=== PATIENT | female | born 1980 | race Caucasian/White ===

== ENCOUNTER 2018-01-24 19:00 | Inpatient (IN) | payer OTHER ==
[~2018-01-24] VITALS: Ht 172.7 cm; Wt 49.4 kg
[2018-01-24] MEDS ORDERED: CLINDAMYCIN 600 mg/50mL D5W 50 ML IV ONE (19:30)
[2018-01-24] MEDS ORDERED: MORPHINE SULFATE 10MG/10ML PF AMP EP ONE (19:35)
[2018-01-24] MEDS ORDERED: ONDANSETRON HCL 4 MG/2 ML VIAL IVP ONE (19:35)
[2018-01-24] MEDS ORDERED: NS IRRIG SOLN 1000 ML IR ONE (19:35)
[2018-01-24] MEDS ORDERED: LR 1,000 ML IV.SOLN IV ONE (19:35)
[2018-01-24] MEDS ORDERED: OXYTOCIN 10 UNIT/ML VIAL IV ONE (19:35)
[2018-01-24] MEDS ORDERED: BUPIVACAINE /PF 0.75% 10 ML VIAL INJ ONE (19:35)
[2018-01-24] MEDS ORDERED: ePHEDrine sulfate 50 MG/ML VIAL IVP ONE (19:35)
[2018-01-24] MEDS ORDERED: CLINDAMYCIN PHOSPHATE 900 mg/50mL D5W IV ONE (19:35)
[2018-01-24] MEDS ORDERED: CEFAZOLIN 2 GM IVPB PREMIX 0 ML IV ONE (19:47)
[2018-01-24] MEDS ORDERED: MORPHINE SULFATE 10MG/10ML PF AMP ONE (19:52)
[2018-01-24] MEDS ORDERED: CLINDAMYCIN 900 mg/50mL D5W 50 ML IV ONE ×2 (19:59→20:00)
[2018-01-24] MEDS ORDERED: LR 1,000 ML IV ONE (20:00)
[2018-01-24] MEDS ORDERED: NALBUPHINE HCL 10 MG/ML AMP IVP PRN (20:15)
[2018-01-24] MEDS ORDERED: fentaNYL CITRATE/PF 100 MCG/2 ML AMP IVP PRN ×2 (20:15)
[2018-01-24] MEDS ORDERED: NALOXONE HCL 0.4 MG/ML AMP (NARCAN) IVP PRN ×2 (20:15)
[2018-01-24] MEDS ORDERED: MORPHINE SULFATE 10MG/10ML PF AMP SP SCH (20:15)
[2018-01-24] MEDS ORDERED: KETOROLAC TROMETHAMINE 30 MG VIAL IVP PRN (20:15)
[2018-01-24] MEDS ORDERED: KETOROLAC TROMETHAMINE 60 MG/2 ML VIAL IM PRN (20:15)
[2018-01-24] MEDS ORDERED: ONDANSETRON HCL 4 MG/2 ML VIAL IVP PRN ×2 (20:15)
[2018-01-24] MEDS ORDERED: DIPHENHYDRAMINE INJ 50 MG/ML VIAL IVP PRN (20:15)
[2018-01-24 20:19] LABS: BASOPHILS % (AUTO) 0.2 % (0.0-2.0); EOSINOPHILS # (AUTO) 0.5 K/uL (0.0-0.4); EOSINOPHILS % (AUTO) 3.9 % (0.0-4.0); HEMATOCRIT 32.1 % (36-48); HEMOGLOBIN 10.9 g/dL (12.0-16.0); LYMPHOCYTES # (AUTO) 2.3 K/uL (1.0-5.5); LYMPHOCYTES % (AUTO) 17.1 % (20.5-51.5); MEAN CORPUSCULAR HEMOGLOBIN 31 pg (27-31); MEAN CORPUSCULAR HGB CONC 34 % (32-36); MEAN CORPUSCULAR VOLUME 90 fL (79.0-98.0); MONOCYTES # (AUTO) 0.8 K/uL (0.0-1.0); MONOCYTES % (AUTO) 6.1 % (1.7-9.3); NEUTROPHILS # (AUTO) 9.6 K/uL (1.8-7.7); NEUTROPHILS % (AUTO) 72.7 % (40.0-70.0); PLATELET COUNT (AUTO) 279 K/uL (130-430); RED BLOOD CELL COUNT(AUTO) 3.57 MIL/uL (4.2-6.2); WHITE BLOOD COUNT (AUTO) 13.2 K/uL (4.8-10.8)
[2018-01-24] MEDS ORDERED: LR 1,000 ML IV SCH (20:28)
[2018-01-24] MEDS ORDERED: OXYTOCIN/0.9 % SODIUM CHLORIDE 1,000 ML IV ONE (20:28)
[2018-01-24] MEDS ORDERED: ANUSOL 1 EA SUPP.RECT (PREPARATION H) RC PRN (20:30)
[2018-01-24] MEDS ORDERED: BISACODYL 10 MG/SUPPOSITORY RC PRN (20:30)
[2018-01-24] MEDS ORDERED: MEASLES,MUMPS&RUBELLA VACC/PF 12500 UNIT/0.5 ML VIAL SUBQ PRN (20:30)
[2018-01-24] MEDS ORDERED: RHO(D) IMMUNE GLOBULIN/MALTOSE 1500 UNITS/1.3 ML (WINHRO) IM PRN (20:30)
[2018-01-24] MEDS ORDERED: OXYCODONE/ACETAMINOPHEN 5-325 TABLET PO PRN ×2 (20:30)
[2018-01-24] MEDS ORDERED: SIMETHICONE 80 MG TAB.CHEW PO PRN (20:30)
[2018-01-24] MEDS ORDERED: SENNOSIDES/DOCUSATE SODIUM 1 TAB TABLET(SENOKOT-S) PO PRN (20:30)
[2018-01-24] MEDS ORDERED: DIPH-TET-PERTUS Vaccine 0.5 ML VIAL (ADACEL) I.M. PRN (20:30)
[2018-01-24] MEDS ORDERED: LANOLIN 7 GM OINT. TP PRN (20:30)
[2018-01-24] MEDS ORDERED: HYDROcodone/ACETAMIN 5-325 MG TAB (NORCO/ VICODIN) PO PRN (20:30)
[2018-01-24 20:45] VITALS: BP_SYST 107
[2018-01-24] MEDS ORDERED: TEMAZEPAM 15 MG CAPSULE PO PRN (21:00)
[2018-01-25] MEDS: CLINDAMYCIN 600 mg/50mL D5W 50 ML IV SCH ×2 (03:00→09:30)
[2018-01-25 06:21] LABS: BASOPHILS % (AUTO) 0.2 % (0.0-2.0); EOSINOPHILS # (AUTO) 0.3 K/uL (0.0-0.4); HEMATOCRIT 27.1 % (36-48); HEMOGLOBIN 9.3 g/dL (12.0-16.0); LYMPHOCYTES # (AUTO) 1.6 K/uL (1.0-5.5); LYMPHOCYTES % (AUTO) 14.3 % (20.5-51.5); MEAN CORPUSCULAR HEMOGLOBIN 31 pg (27-31); MEAN CORPUSCULAR HGB CONC 34 % (32-36); MEAN CORPUSCULAR VOLUME 91 fL (79.0-98.0); MONOCYTES # (AUTO) 0.5 K/uL (0.0-1.0); MONOCYTES % (AUTO) 4.6 % (1.7-9.3); NEUTROPHILS % (AUTO) 77.9 % (40.0-70.0); PLATELET COUNT (AUTO) 214 K/uL (130-430); RED BLOOD CELL COUNT(AUTO) 2.99 MIL/uL (4.2-6.2); RED CELL DISTRIBUTION WIDTH 11.9 % (9.0-15.0); WHITE BLOOD COUNT (AUTO) 11.4 K/uL (4.8-10.8)
[2018-01-25] MEDS ORDERED: IBUPROFEN 600 MG TABLET ONE (17:44)
[2018-01-26] MEDS: IBUPROFEN 600 MG TABLET PO SCH ×5 (00:05→23:41)
[2018-01-26] MEDS: DOCUSATE SODIUM 100 MG CAPSULE PO PRN ×3 (05:55→18:20)
[2018-01-26] MEDS ORDERED: IBUPROFEN 600 MG TABLET PO SCH (06:00)
[2018-01-27] MEDS: IBUPROFEN 600 MG TABLET PO SCH ×3 (05:54→17:48)
== END 2018-01-27 21:00 | disposition home or self-care (01) | DRG 766 ==
LOC: OBSVTOIN 19:00 → SPU 19:00
PROVIDERS: ADMIT Specialist; ATTEND Specialist
PROC: 10D00Z1 Extraction of Products of Conception, Low, Open Approach (ICD-10-PCS; principal; 2018-01-24 19:30)
DX: O45.93 Premature separation of placenta, unspecified, third trimester (principal); Z37.0 Single live birth; Z3A.38 38 weeks gestation of pregnancy
CPT/HCPCS: 36415; 74018; 85025; 86592; 86886; 86900; 86901; 94760; J0690; J1200; J2274; J2405; J2590; J3490; J7120

== ENCOUNTER 2019-06-21 20:13 | Inpatient (IN) | payer OTHER ==
[~2019-06-21] VITALS: Ht 172.7 cm; Wt 83.9 kg
[2019-06-21] MEDS ORDERED: TEMAZEPAM 15 MG CAPSULE PO PRN (21:00)
[2019-06-21] MEDS ORDERED: LR 1,000 ML IV ONE (21:35)
[2019-06-21] MEDS ORDERED: CEFAZOLIN 2 GM IVPB PREMIX 50 ML IV ONE (21:45)
[2019-06-21 22:22] LABS: BILIRUBIN,URINE NEGATIVE (NEGATIVE); BLOOD, URINE NEGATIVE (NEGATIVE); CLARITY/URINE HAZY (CLEAR); COLOR,URINE YELLOW (YELLOW); GLUCOSE,URINE NEGATIVE (NEGATIVE); KETONES,URINE 3+ (NEGATIVE); LEUKOCYTE ESTERASE ,URINE 1+ (NEGATIVE); NITRITE, URINE NEGATIVE (NEGATIVE); PH,URINE 6.5 (5.0-8.0); PROTEIN URINE TRACE (NEGATIVE); UROBILINOGEN,URINE 0.2 (0.2-1.0)
[2019-06-21 22:39] LABS: BACTERIA,URINE MODERATE /HPF (None Seen); MUCUS,URINE 2+ /LPF (None Seen); RBC,URINE 0-3 /HPF (0-3)
[2019-06-21 22:47] LABS: BASOPHILS % (AUTO) 0.3 % (0.0-2.0); EOSINOPHILS # (AUTO) 0.3 K/uL (0.0-0.4); HEMATOCRIT 31.3 % (36-48); HEMOGLOBIN 10.7 g/dL (12.0-16.0); LYMPHOCYTES # (AUTO) 1.8 K/uL (1.0-5.5); LYMPHOCYTES % (AUTO) 20.7 % (20.5-51.5); MEAN CORPUSCULAR HEMOGLOBIN 31 pg (27-31); MEAN CORPUSCULAR HGB CONC 34 % (32-36); MEAN CORPUSCULAR VOLUME 91 fL (79.0-98.0); MONOCYTES # (AUTO) 0.7 K/uL (0.0-1.0); MONOCYTES % (AUTO) 8.3 % (1.7-9.3); NEUTROPHILS # (AUTO) 5.9 K/uL (1.8-7.7); NEUTROPHILS % (AUTO) 66.7 % (40.0-70.0); PLATELET COUNT (AUTO) 235 K/uL (130-430); RED BLOOD CELL COUNT(AUTO) 3.43 MIL/uL (4.2-6.2); RED CELL DISTRIBUTION WIDTH 12.6 % (9.0-15.0); WHITE BLOOD COUNT (AUTO) 8.8 K/uL (4.8-10.8)
[2019-06-21] MEDS ORDERED: SODIUM CHLORIDE IV ONE (23:12)
[2019-06-21] MEDS ORDERED: OXYTOCIN IV ONE (23:12)
[2019-06-21] MEDS ORDERED: MORPHINE SULFATE 10MG/10ML PF AMP SP SCH (23:15)
[2019-06-21] MEDS ORDERED: NALOXONE HCL 0.4 MG/ML AMP (NARCAN) IVP PRN ×2 (23:15)
[2019-06-21] MEDS ORDERED: ONDANSETRON HCL 4 MG/2 ML VIAL IVP PRN (23:15)
[2019-06-21] MEDS ORDERED: KETOROLAC TROMETHAMINE 60 MG/2 ML VIAL IM PRN (23:15)
[2019-06-21] MEDS ORDERED: fentaNYL CITRATE/PF 100 MCG/2 ML AMP IVP PRN ×2 (23:15)
[2019-06-21] MEDS ORDERED: NALBUPHINE HCL 10 MG/ML AMP IVP PRN (23:15)
[2019-06-21 23:17] LABS: CALCIUM 7.7 mg/dL (8.4-11.0); CREATININE 0.57 mg/dL (0.55-1.30); POTASSIUM 3.4 mmol/L (3.5-5.1)
[2019-06-21 23:22] LABS: ALBUMIN 2.5 g/dL (3.4-4.8); TOTAL BILIRUBIN 0.3 mg/dL (0.0-1.0)
[2019-06-21] MEDS ORDERED: NS IRRIG SOLN 1000 ML IR ONE (23:45)
[2019-06-21] MEDS ORDERED: LR 1,000 ML IV.SOLN IV ONE (23:45)
[2019-06-21] MEDS ORDERED: BUPIVACAINE /PF 0.75% 10 ML VIAL INJ ONE (23:45)
[2019-06-21] MEDS ORDERED: MORPHINE SULFATE 10MG/10ML PF AMP ONE (23:45)
[2019-06-21] MEDS ORDERED: ONDANSETRON HCL 4 MG/2 ML VIAL ONE (23:45)
[2019-06-21] MEDS ORDERED: LR 1,000 ML IV SCH (23:50)
[2019-06-21] MEDS ORDERED: OXYTOCIN/0.9 % SODIUM CHLORIDE 1,000 ML IV ONE (23:50)
[2019-06-22] MEDS ORDERED: SENNOSIDES/DOCUSATE SODIUM 1 TAB TABLET(SENOKOT-S) PO PRN
[2019-06-22] MEDS ORDERED: ANUSOL 1 EA SUPP.RECT (PREPARATION H) RC PRN
[2019-06-22] MEDS ORDERED: MEASLES,MUMPS&RUBELLA VACC/PF 12500 UNIT/0.5 ML VIAL SUBQ PRN
[2019-06-22] MEDS ORDERED: DIPH-TET-PERTUS Vaccine 0.5 ML VIAL (ADACEL) I.M. PRN
[2019-06-22] MEDS ORDERED: LANOLIN 7 GM OINT. TP PRN
[2019-06-22] MEDS ORDERED: RHO(D) IMMUNE GLOBULIN/MALTOSE 1500 UNITS/1.3 ML (WINHRO) IM PRN
[2019-06-22] MEDS ORDERED: HYDROcodone/ACETAMIN 5-325 MG TAB (NORCO/ VICODIN) PO PRN
[2019-06-22] MEDS ORDERED: BISACODYL 10 MG/SUPPOSITORY RC PRN
[2019-06-22 01:31] VITALS: BP_SYST 130
[2019-06-22] MEDS: CEFAZOLIN 1 GM IVPB PREMIX 50 ML IV SCH ×3 (06:00→17:45)
[2019-06-22] MEDS: KETOROLAC TROMETHAMINE 30 MG VIAL IVP SCH ×3 (06:15→17:45)
[2019-06-22] MEDS: DIPHENHYDRAMINE INJ 50 MG/ML VIAL IVP PRN ×2 (06:35→14:45)
[2019-06-22 08:01] LABS: BASOPHILS % (AUTO) 0.2 % (0.0-2.0); EOSINOPHILS % (AUTO) 0.3 % (0.0-4.0); HEMATOCRIT 30.4 % (36-48); HEMOGLOBIN 10.4 g/dL (12.0-16.0); LYMPHOCYTES % (AUTO) 8.7 % (20.5-51.5); MEAN CORPUSCULAR HEMOGLOBIN 32 pg (27-31); MEAN CORPUSCULAR HGB CONC 34 % (32-36); MEAN CORPUSCULAR VOLUME 93 fL (79.0-98.0); MONOCYTES # (AUTO) 0.7 K/uL (0.0-1.0); MONOCYTES % (AUTO) 6.6 % (1.7-9.3); NEUTROPHILS # (AUTO) 9.3 K/uL (1.8-7.7); NEUTROPHILS % (AUTO) 84.2 % (40.0-70.0); PLATELET COUNT (AUTO) 215 K/uL (130-430); RED BLOOD CELL COUNT(AUTO) 3.29 MIL/uL (4.2-6.2); RED CELL DISTRIBUTION WIDTH 12.9 % (9.0-15.0)
[2019-06-22] MEDS ORDERED: FLU VACC QS2019-20 36MOS UP/PF 60 MCG/0.5 ML SYRINGE I.M. PRN (09:00)
[2019-06-22] MEDS ORDERED: KETOROLAC TROMETHAMINE 30 MG VIAL IVP SCH (12:00)
[2019-06-22] MEDS: SIMETHICONE 80 MG TAB.CHEW PO PRN (20:35)
[2019-06-22] MEDS: DOCUSATE SODIUM 100 MG CAPSULE PO PRN (20:35)
[2019-06-23] MEDS: KETOROLAC TROMETHAMINE 30 MG VIAL IVP SCH
[2019-06-23] MEDS: DOCUSATE SODIUM 100 MG CAPSULE PO PRN (04:02)
[2019-06-23] MEDS: OXYCODONE/ACETAMINOPHEN 5-325 TABLET PO PRN ×4 (04:03→19:06)
[2019-06-23] MEDS: SIMETHICONE 80 MG TAB.CHEW PO PRN ×3 (04:03→10:00)
[2019-06-23] MEDS: IBUPROFEN 600 MG TABLET PO SCH ×3 (05:52→17:48)
[2019-06-23] MEDS ORDERED: IBUPROFEN 600 MG TABLET PO SCH (12:00)
[2019-06-24] MEDS: IBUPROFEN 600 MG TABLET PO SCH ×5 (01:30→23:37)
[2019-06-24] MEDS: SIMETHICONE 80 MG TAB.CHEW PO PRN ×2 (12:22→17:58)
[2019-06-24] MEDS: OXYCODONE/ACETAMINOPHEN 5-325 TABLET PO PRN (14:08)
[2019-06-24] MEDS: DOCUSATE SODIUM 100 MG CAPSULE PO PRN (17:58)
[2019-06-25] MEDS: OXYCODONE/ACETAMINOPHEN 5-325 TABLET PO PRN ×2 (00:05→19:57)
[2019-06-25] MEDS: DOCUSATE SODIUM 100 MG CAPSULE PO PRN (00:06)
[2019-06-25] MEDS: SIMETHICONE 80 MG TAB.CHEW PO PRN (00:06)
[2019-06-25] MEDS: IBUPROFEN 600 MG TABLET PO SCH ×2 (06:01→12:26)
[2019-06-25] MEDS ORDERED: FLU VACC QS2019-20 36MOS UP/PF 60 MCG/0.5 ML SYRINGE I.M. PRN (11:30)
== END 2019-06-25 20:10 | disposition home or self-care (01) | DRG 788 ==
LOC: SPU 20:13 → OBSVTOIN 21:25
PROVIDERS: ADMIT Specialist; ATTEND Specialist
PROC: 10D00Z1 Extraction of Products of Conception, Low, Open Approach (ICD-10-PCS; principal; 2019-06-21 22:30)
DX: O69.81X0 Labor and delivery complicated by cord around neck, without compression, not applicable or unspecified (principal); O34.211 Maternal care for low transverse scar from previous cesarean delivery; O99.72 Diseases of the skin and subcutaneous tissue complicating childbirth; L91.0 Hypertrophic scar; Z3A.38 38 weeks gestation of pregnancy; Z37.0 Single live birth; Z88.1 Allergy status to other antibiotic agents
CPT/HCPCS: 36415; 80053; 81000-TC; 85025; 86592; 86886; 86900; 86901; 87086; 90715; 94760; G0378; J0690; J1200; J1885; J2274; J2405; J2590; J3490; J7120